=== PATIENT | female | born 1955 | race Caucasian/White ===

== ENCOUNTER 2017-03-03 08:21 | Day surgery (SDC) | payer OTHER ==
[2017-03-03] VITALS (10 sets, daily range): BP systolic 124–151; BP diastolic 70–84
[~2017-03-03] VITALS: Ht 165.1 cm; Wt 84.8 kg
[2017-03-03] MEDS ORDERED: LIDOCAINE 1% INJ 20 ML (XYLOCAINE) VIAL ONE (08:37)
[2017-03-03] MEDS ORDERED: NS IV 1000 ML 1,000 ML ONE (08:38)
[2017-03-03] MEDS ORDERED: HEParin (CATH LAB) 2,000 ML IV ONE (08:38)
[2017-03-03] MEDS ORDERED: NS IV 1000 ML 1,000 ML IV SCH ×3 (08:43→11:06)
[2017-03-03 09:08] LABS: MEAN PLATELET VOLUME 11.4 FL (7.4-10.4); RED BLOOD COUNT 5.08 10^6/uL (4.35-5.85); RED CELL DISTRIBUTION WIDTH 13.9 % (10.0-14.5); WHITE BLOOD COUNT 5.9 10^3/uL (4.3-11.0)
[2017-03-03 09:21] LABS: PROTHROMBIN TIME PATIENT 13.2 SEC (12.2-14.7)
[2017-03-03 09:32] LABS: ALANINE AMINOTRANSFERASE 24 U/L (0-55); ALBUMIN 4.4 G/DL (3.2-4.5); ANION GAP 8 MMOL/L (5-14); ASPARTATE AMINO TRANSFERASE 22 U/L (5-34); BILIRUBIN,TOTAL 0.7 MG/DL (0.1-1.0); BLOOD UREA NITROGEN 23 MG/DL (7-18); BUN/CREATININE RATIO 27; CALCIUM 9.6 MG/DL (8.5-10.1); CARBON DIOXIDE 25 MMOL/L (21-32); CHLORIDE 108 MMOL/L (98-107); CHOLESTEROL 183 MG/DL (< 200); CREATININE SERUM 0.84 MG/DL (0.60-1.30); DIRECT LDL 114 MG/DL (1-129); GFR ESTIMATED > 60; GLUCOSE 95 MG/DL (70-105); POTASSIUM 3.7 MMOL/L (3.6-5.0); SODIUM 141 MMOL/L (135-145); TOTAL PROTEIN 6.9 G/DL (6.4-8.2); TRIGLYCERIDES 200 MG/DL (<150); VLDL CHOLESTEROL 40 MG/DL (5-40)
[2017-03-03] MEDS ORDERED: CYCL10TA9 PO (09:50)
[2017-03-03] MEDS ORDERED: SIMV20TA3 PO (09:50)
[2017-03-03] MEDS ORDERED: TOPI50TA13 PO (09:50)
[2017-03-03] MEDS ORDERED: CITA10TA7 PO (09:50)
[2017-03-03] MEDS ORDERED: HYDR12.5 PO (09:50)
[2017-03-03] MEDS ORDERED: METO50TA2 PO (09:50)
[2017-03-03] MEDS ORDERED: ASPI-999 PO (09:50)
[2017-03-03] MEDS ORDERED: NITR0.4T39 SL (09:50)
[2017-03-03] MEDS ORDERED: MELO15TA39 PO (09:50)
[2017-03-03] MEDS ORDERED: OMEP40CA36 PO (09:50)
[2017-03-03] MEDS ORDERED: fentaNYL INJECTION 100 MCG/2 ML AMP ONE (10:02)
[2017-03-03] MEDS ORDERED: MIDAZOLAM 5 MG/5 ML (VERSED) VIAL ONE (10:03)
[2017-03-03] MEDS ORDERED: diphenhydrAMINE 50 MG/ML INJ (BENADRYL) ONE (10:03)
--- NOTE | 2017-03-03 11:05 | Cardiac Procedure Note-CS/ASA ---
Pre-Procedure Note Pre-Op Procedure Note H&P Reviewed The H&P was reviewed, patient examined and no changes noted. Date H&P Reviewed: March 03, 2017 Time H&P Reviewed: 10:30 Conscious Sedation Pre-Proced Time Reviewed: 10:30 ASA Class: 3 Airway Mallampati Classification: ([place] appropriate class) I. II. III, IV Lungs Heart ASA score ASA 1: a normal healthy patient ASA 2: a patient with a mild systemic disease (mid diabetes, controlled hypertension, obesity ASA 3: a patient with a severe systemic disease that limits activity (angina , COPD, prior Myocardial infarction) ASA 4: a patient with an incapacitating disease that is a constant threat to life (CHF, renal failure) ASA 5: a moribund patient not expected to survive 24 hrs. (ruptured aneurysm) ASA 6: a declared brain patient whose organs are being harvested. For emergent operations, add the letter E after the classification Grade 2 Sedation Plan: Analgesia, Amnesia, Plan communicated to team members, Discussed options with patient/fam, Discussed risks with patient/fam Note The patient is an appropriate candidate to undergo the planned procedure, sedation, and anesthesia. The patient immediately re-assessed prior to indication. KEELY REARDON MD FACP FAC CCDS March 03, 2017 11:05
--- NOTE | 2017-03-03 11:09 | Discharge Inst-Cardiology ---
Discharge Inst-Cardiac Discharge Medications Continued Medications: Aspirin (Aspirin) 81 Mg Tab.chew 81 MG PO DAILY, TAB Citalopram Hydrobromide (Citalopram HBr) 10 Mg Tablet 10 MG PO DAILY, TAB Cyclobenzaprine HCl (Cyclobenzaprine HCl) 10 Mg Tablet 10 MG PO TID PRN for MUSCLE SPASMS, TAB Hydrochlorothiazide (Hydrochlorothiazide) 12.5 Mg Capsule 12.5 MG PO DAILY, CAP Meloxicam (Meloxicam) 15 Mg Tablet 15 MG PO DAILY, TAB Metoprolol Tartrate (Metoprolol Tartrate) 50 Mg Tablet 50 MG PO BID, TAB Omeprazole (Omeprazole) 40 Mg Capsule.dr 40 MG PO DAILY, CAP Simvastatin (Simvastatin) 20 Mg Tablet 20 MG PO HS, TAB Topiramate (Topiramate) 50 Mg Tablet 50 MG PO BID, TAB Discontinued Medications: Nitroglycerin (Nitroglycerin) 0.4 Mg Tab.subl 0.4 MG SL UD PRN for CHEST PAIN, TAB DISSOLVE 1 TAB UNDER TONGUE NEEDED, MAY REPEAT EVERY 5 MINUTES 3 DOSES; IF NO RELIEF CALL 911 KEELY REARDON MD FACP FAC CCDS March 03, 2017 11:09
--- NOTE | 2017-03-03 11:09 | Discharge Inst-Post CATH ---
Discharge Inst-CATH Post Cardiac Cath D/C Inst Follow Up/Plan F/u with Dr Guerrero in 2 weeks CARDIAC CATH DISCHARGE INSTRUCTIONS *Hold Metformin for 48 hours post heart cath. ACTIVITY * Go Home directly and rest. * Limit activity of the leg (or wrist if it was used) for 7 days including aerobics, swimming, jogging, bicycling, etc. * Restrict stair-climbing for 7 days if possible, if not, climb up with your non -cath leg, then bring together on the same step. * Avoid lifting, pushing, pulling or excessive movement of the affected extremity for 7 days. * Customary sexual activity may be resumed after 2 days-use caution not to use a position that strains or causes pain to the affected extremity. * No driving for 24 hours. * NO SMOKING. * Avoid straining for bowel movements for 7 days. * Gentle walking on level ground is allowed. * Returning to work will depend on the type of procedure and the results. Your doctor will discuss this with you. CALL YOUR DOCTOR FOR ANY OF THE FOLLOWING: *If bleeding from the puncture site occurs- Apply gentle pressure to site with clean cloth and call your doctor or EMS. * If a knot or lump forms under the skin, increases in size, or causes pain. * If bruising appears to be worsening or moving further down your leg instead of disappearing. * Temperature above 101 F. CARE OF YOUR GROIN INCISION; * Bruising or purple discoloration of the skin near the puncture site is common. * You may shower only, no bathtub bathing for 5 days. Be careful to avoid slipping as your leg may feel stiff. * If a closure device was used on your femoral artery, please see the attached guide regarding care of the device and your leg. * REMOVE the dressing from your groin the next day after your procedure in the shower. CARE OF YOUR WRIST INCISION; * Bruising or purple discoloration of the skin near the puncture site is common. * You may shower. * DO NOT submerge wrist. * Remove dressing in 24 hours. KEELY GUERRERO MD [facility] CCDS March 03, 2017 11:09
[2017-03-03] MEDS ORDERED: PATIENT MAY USE OWN MEDS, ALL PO SCH (11:15)
--- NOTE | 2017-03-03 20:55 | CARDIAC CATHETERIZATION ---
DATE OF SERVICE: 03/03/2017 CARDIAC CATHETERIZATION DATE OF PROCEDURE: 03/03/2017 The patient is a 61-year-old lady who has been experiencing symptoms consistent with classical angina equivalent. These symptoms have been progressive. She is experiencing marked shortness of breath and chest discomfort with small amounts of activity. She has already had a pulmonary consultation with her bumper operator in [place] who had recommended cardiac catheterization for evaluation for cardiac causes of her symptoms. Based on history and her multiple risk factors, this appeared reasonable and we proceeded with cardiac catheterization today after having obtained an informed consent. DESCRIPTION OF PROCEDURE: She was brought to the cardiac catheterization laboratory in the fasting state. Right groin was prepared and draped in the usual sterile fashion. Then 1% lidocaine for local anesthesia. Modified Seldinger technique was used to advance a 5-Russian sheath in the right femoral artery. Angiography of the right femoral artery was carried out through a sheath. A 5-Russian JL4 catheter for left coronary angiography, a 5-Russian JR4 catheter was used for right coronary angiography. A 5-Russian pigtail catheter was used for left heart catheterization and left ventricular angiography. The 5-Russian pigtail catheter was pulled back to the aortic arch and aortic arch angiography was performed. The catheter was then pulled. Mynx was used to achieve hemostasis. She tolerated the procedure well. HEMODYNAMICS: Left ventricular end diastolic pressure following coronary angiography was 12 mmHg. There is no significant pressure gradient on pullback across the aortic valve. The ascending aortic pressure is 134/71 with a mean of 74 mmHg. LEFT VENTRICULAR ANGIOGRAPHY: Left ventricular angiography was carried out in the right anterior oblique projection. Global left ventricular systolic function is normal. No regional wall motion abnormalities were seen. Left ventricular ejection fraction is approximately 60%. No significant mitral regurgitation is seen. AORTIC ARCH ANGIOGRAPHY: Aortic arch angiography did not indicate any significant thoracic aortic aneurysm or dissection, to the extent visualized. The neck arteries, to the extent seen, do not exhibit significant disease. CORONARY ANGIOGRAPHY: Left main coronary artery, left circumflex coronary artery, right coronary artery and left anterior descending artery are all angiographically normal. The left circumflex artery is codominant with the right coronary artery. There is a separately arising conus artery arising from the right coronary sinus which does not exhibit significant disease. CONCLUSION: 1. Angiographically normal coronary arteries. 2. Normal global left ventricular systolic function with ejection fraction of 60%. 3. Normal left ventricular end-diastolic pressure. 4. No evidence of any thoracic aortic aneurysm or dissection. DISCUSSION AND RECOMMENDATIONS: Based on the results of this study, her symptoms do not appear to be of cardiac origin. Continuing risk factor modification is advised. Outpatient follow up is advised. Job ID: [id number] DocumentID: [id number] Dictated Date: 03/03/2017 10:55:50 Music Typographer Date: 03/03/2017 12:05:44 Dictated By: KEELY REARDON MD, MA, FACP, FACC, MTDD
== END 2017-03-03 14:38 | disposition home or self-care (01) ==
LOC: CATH 08:21 → SURG 12:30 → CATH 14:38
PROVIDERS: ATTEND Internal Medicine Cardiovascular Disease
DX: R07.89 Other chest pain (principal); R06.02 Shortness of breath; I10 Essential (primary) hypertension; E78.5 Hyperlipidemia, unspecified; Z79.899 Other long term (current) drug therapy
CPT/HCPCS: 36221; 36415; 80053; 80061; 85027; 85610; 85730; 87081; 93458

== ENCOUNTER → 2017-03-16 | Outpatient (CLI) | payer OTHER ==
[~2017-03-16] MED LIST: ASPI-999 PO; CITA10TA7 PO; CYCL10TA9 PO; HYDR12.5 PO; MELO15TA39 PO; METO50TA2 PO; NITR0.4T39 SL; OMEP40CA36 PO; SIMV20TA3 PO; TOPI50TA13 PO
--- NOTE | 2017-03-17 08:04 | ECHOCARDIOGRAPHY REPORT ---
DATE OF SERVICE: 03/16/2017 PROCEDURE: Echocardiography report. ORDERING PHYSICIAN: Dr. Guerrero. CLINICAL DIAGNOSIS: Shortness of breath. MEASUREMENTS: 1. Aortic root 2.9. 2. LV diameter diastolic 4.9. 3. IVS thickness, diastolic 1.2. 4. LVPW thickness, diastolic 1.1. 5. Left atrium 2.4. DESCRIPTION: Two dimensional echocardiography shows normal global left ventricular systolic function and normal regional wall motion. Aortic, mitral and tricuspid valve leaflets show good leaflet excursion. There is no significant pericardial effusion. Doppler imaging shows mild aortic regurgitation and trivial to mild tricuspid regurgitation. Pulmonary artery systolic pressure is estimated to be approximately 25 mmHg. There is no Doppler evidence of any significant valvular stenosis. Mitral inflow is consistent with mild diastolic dysfunction of left ventricle (grade I diastolic dysfunction). There is no evidence of any significant intracardiac shunt on this transthoracic echocardiographic study. Inferior vena cava appears to be of normal size and they exhibits normal inspiratory collapse. CONCLUSIONS: 1. Normal global left ventricular systolic function with ejection fraction approximately 65%. 2. Mild aortic regurgitation. 3. Trivial to mild tricuspid regurgitation. 4. Pulmonary artery systolic pressure is estimated at approximately 25 mmHg. 5. Mild diastolic dysfunction of left ventricle. Job ID: [id number] DocumentID: [id number] Dictated Date: 03/16/2017 11:17:56 Patrol Lady Date: 03/16/2017 11:53:42 Dictated By: KEELY GUERRERO MD, MA, FACP, FACC,
== END ==
LOC: CARD 08:33
PROVIDERS: ATTEND Internal Medicine Cardiovascular Disease
DX: R06.02 Shortness of breath (principal); I10 Essential (primary) hypertension
CPT/HCPCS: 93306

== ENCOUNTER → 2020-05-24 | Outpatient (CLI) | payer MEDICARE, OTHER ==
[~2020-05-24] MED LIST changes: +CATHETER FLUSH 10 ML SYR IV PRN; +HOLD METFORMIN - RECEIVED CONTRAST 20 ML VIAL IV SCH; +IOHEXOL 350 MG/ML 100 ML (OMNIPAQUE 350) VIAL IV ONE; +METO50TA15 PO; -METO50TA2 PO; +NS 100 ML (IVPB) BAG IV ONE; +OMEP40CA27 PO; -OMEP40CA36 PO; +SIMV20TA26 PO; -SIMV20TA3 PO
[2020-05-24 08:47] LABS: BUN/CREATININE RATIO 20; CREATININE SERUM 0.71 MG/DL (0.60-1.30); GFR ESTIMATED > 60
== END ==
LOC: LAB FS 08:05
PROVIDERS: ATTEND Otolaryngology Otolaryngology/Facial Plastic Surgery
DX: R22.1 Localized swelling, mass and lump, neck (principal)
CPT/HCPCS: 36415; 82565; 84520

== ENCOUNTER → 2020-05-24 | Outpatient (CLI) | payer MEDICARE, OTHER ==
--- NOTE | 2020-05-24 10:20 | Diagnostic Imaging Report ---
PROCEDURE: CT neck soft tissue with contrast. TECHNIQUE: Multiple contiguous axial images were obtained through the neck after the administration of contrast. Auto Exposure Controls were utilized during the CT exam to meet ALARA standards for radiation dose reduction. INDICATION: Lump on left clavicle. There are no prior studies available for comparison. FINDINGS: Reportedly, the patient has a palpable abnormality in the region of the left clavicle. The images through this area do show the subcutaneous fat on the left is asymmetrically more prominent than the right. Whether this accounts for the patient's "mass" is not certain. If further evaluation in this area is desired, then ultrasound would be recommended. There is no discrete solid or cystic mass in this area noted otherwise. There is no mass or adenopathy in the neck. The oral cavity is partially obscured by artifact related to the patient's dental fillings, however. The parotid and submandibular glands are symmetrical. The thyroid gland is not enlarged and seems fairly homogeneous. The lung apices are clear. The bone windows show no evidence for fracture or for destructive lesion. The intracranial contents were visualized are unremarkable. The orbits are symmetrical and within normal limits. The sinuses are generally clear. IMPRESSION: 1. The subcutaneous fat in the region of the left clavicle is more prominent than the subcutaneous fat on the right. Whether this accounts for the patient's palpable 'mass" is not certain. If further study is desired, then ultrasound would be recommended. 2. There is no mass or adenopathy involving the neck and there is no sign of an acute abnormality. Dictated by: Dictated on workstation # [id number]
== END ==
LOC: RAD 07:59
PROVIDERS: ATTEND Otolaryngology Otolaryngology/Facial Plastic Surgery
DX: R22.1 Localized swelling, mass and lump, neck (principal)
CPT/HCPCS: 70491

== ENCOUNTER → 2020-07-09 | Outpatient (CLI) | payer MEDICARE, OTHER ==
--- NOTE | 2020-07-09 10:47 | Diagnostic Imaging Report ---
PROCEDURE: CT abdomen and pelvis with contrast. TECHNIQUE: Multiple contiguous axial images were obtained through the abdomen and pelvis after administration of intravenous contrast. Auto Exposure Controls were utilized during the CT exam to meet ALARA standards for radiation dose reduction. INDICATION: Abnormal liver enzymes. COMPARISON: No prior studies are available for comparison. FINDINGS: The lung bases are clear. Mild generalized low density is noted within the liver, suggestive of hepatic steatosis. No discrete liver mass is identified. The gallbladder is surgically absent. Mild prominence of the biliary ducts is noted, likely owing to the post cholecystectomy state. The pancreas and spleen are unremarkable. The right adrenal gland is unremarkable. There is a small nodule involving the left adrenal gland measuring 12 mm in size. This is indeterminate. The kidneys are unremarkable. The aorta is nonaneurysmal. No central retroperitoneal or mesenteric lymphadenopathy is seen. There is a small fat-containing umbilical hernia. The bowel loops are of normal caliber. There is no obstruction. There is mild diverticulosis of the sigmoid colon but no evidence of acute diverticulitis. The unopacified bladder is unremarkable. No definite pelvic lymphadenopathy is seen. The bony structures appear nonacute. IMPRESSION: 1. Probable mild hepatic steatosis. 2. Uncomplicated diverticulosis. 3. Small left adrenal nodule, indeterminate. Followup in 6 months is recommended to confirm stability. 4. No other significant abnormality is detected. Dictated by: Dictated on workstation # [id number]
== END ==
LOC: RAD FS 09:32
PROVIDERS: ATTEND Nurse Practitioner
DX: K57.30 Diverticulosis of large intestine without perforation or abscess without bleeding (principal); E27.8 Other specified disorders of adrenal gland; R74.8 Abnormal levels of other serum enzymes; Z90.49 Acquired absence of other specified parts of digestive tract
CPT/HCPCS: 74177